=== PATIENT | female | born 1990 | race Caucasian/White ===

== ENCOUNTER 2016-09-30 17:05 | Emergency (ER) | payer OTHER ==
--- NOTE | 2016-09-30 19:05 | UC ---
Knee Pain HPI - HPI Summary HPI Summary: 26 y/o female presents to the urgent care c/o left knee pain since 09/16/2016 while she was playing softball, she twisted her left knee while running. Pt took tylenol to alleviate symptoms. But this past Tuesday09/28/2016 she played again and now her pain is worse, 8/10 even at rest. Pt has placed ice and taking tylenol. Pt denies fever, chest pain, SOB, N/V/D. Pt reports her LMP [id number] and her periods are regular and declines a test. - History of Current Complaint Chief Complaint: UCLowerExtremity Stated Complaint: LFT KNEE PAIN Time Seen by Provider: 09/30/16 18:49 Hx Obtained From: Patient Hx Last Menstrual Period: 09/11/16 ?: No Onset/Duration: Sudden Onset, Lasting Days, Still Present Severity Initially: Mild Severity Currently: Moderate Location Of Injury: Left knee Pain Intensity: 8 Pain Scale Used: 0-10 Numeric Character: Sharp Aggravating Factor(s): Movement, Weight Bearing, Prolonged Standing Alleviating Factor(s): Cold, OTC Meds Associated Signs And Symptoms: Positive: Swelling Able to Bear Weight: Yes - Risk Factors Septic Arthritis Risk Factor: Negative Gout Risk Factor: Negative - Allergies/Home Medications Allergies/Adverse Reactions: Allergies Allergy/AdvReac Type Severity Reaction Status Date / Time No Known Allergies Allergy Verified 09/30/16 18:07 Home Medications: Home Medications ALPRAZolam TAB* [Xanax TAB*] 0.5 mg PO BID PRN 09/30/16 [History Confirmed 09/30] buPROPion TAB* [Wellbutrin TAB*] 100 mg PO BID 09/30/16 [History Confirmed 09/30] PMH/Surg Hx/FS Hx/Imm Hx Previously Healthy: Yes Psychological History: Anxiety Other History Of: Negative For: Anticoagulant Therapy - Surgical History Surgical History: None Surgery Procedure, Year, and Place: tonselectomy 01/2012 - Family History Known Family History: Positive: Diabetes Family History: COPD - Social History Occupation: Employed Full-time Lives: With Family Alcohol Use: Weekly Substance Use Type: None Smoking Status (MU): Former Smoker When Did the Patient Quit Smoking/Using Tobacco: 2010 Review of Systems Constitutional: Negative Skin: Negative, Rash ENT: Negative Respiratory: Negative Cardiovascular: Negative Gastrointestinal: Negative Genitourinary: Negative Motor: Negative Neurovascular: Negative Musculoskeletal: Decreased ROM - LF knee pain Neurological: Negative Psychological: Negative All Other Systems Reviewed And Are Negative: Yes Physical Exam Triage Information Reviewed: Yes Appearance: Well-Appearing, No Pain Distress, Well-Nourished, Obese Vital Signs: Initial Vital Signs Temp 98.1 F 09/30/16 18:01 Pulse 86 09/30/16 18:01 Resp 18 09/30/16 18:01 BP 133/75 09/30/16 18:01 Pulse Ox 100 09/30/16 18:01 Vital Signs Reviewed: Yes Eye Exam: Normal - PERRLA, EOMI, fundi grossly normal Eyes: Positive: Conjunctiva Clear ENT Exam: Normal ENT: Positive: Normal ENT inspection, Hearing grossly normal, Pharynx normal, TMs normal Dental Exam: Normal Neck exam: Normal Neck: Positive: Supple, Nontender, No Lymphadenopathy Respiratory Exam: Normal Respiratory: Positive: Chest non-tender, Lungs clear, Normal breath sounds, No respiratory distress Cardiovascular Exam: Normal Cardiovascular: Positive: RRR, No Murmur, Pulses Normal Abdominal Exam: Normal Abdomen Description: Positive: Nontender, No Organomegaly, Soft. Negative: CVA Tenderness (R), CVA Tenderness (L) Bowel Sounds: Positive: Present Musculoskeletal Exam: Normal Musculoskeletal: Positive: Other: - LEFT knee: Mild swelling of the left knee w/ o erythema when compared with RT knee. Decrease ROM on flexion and extension due to pain. PT able to ambulate. Drawer test positive, and Valgus and Varus test positive. Positive capillary refill of lower extremity and positive pulses. Positive sensation. Neurological Exam: Normal Psychological Exam: Normal Skin Exam: Normal Knee Pain Course/Dx - Course Course Of Treatment: 26 y/o female presents to the urgent care c/o left knee pain since 09/16/2016 while she was playing softball, she twisted her knee while running. Hx obtained. PE abnormal finding: LEFT knee: Mild swelling of the left knee w/o erythema when compared with RT knee. Decrease ROM on flexion and extension due to pain. PT able to ambulate. Drawer test positive, and Valgus and Varus test positive. Positive capillary refill of lower extremity and positive pulses. Positive sensation. R/o Anterior cruciate ligament tear. Pt decline test for x-ray reports LMP 09/11/2016 with regular menstrual cycles. X-ray of left knee ordered. Result: negative. Pt given Ibuprofen 800mg PO at the urgent care to alleviate pain. Pt tolerated well medication and pain decrease to 09/11. I spoked with the Orthopedic Dr real estate acquisition analyst DR. Fazal Galaviz. Presented the case and he recommended placing PT on knee immobilzer and have Pt call the office next day to schedule an appt for next week, since pt is ambulating and injury happened a week ago. Pt Rx ibuprofen 800mg PO prn after meals and advised to keep inmmobilizer in place a f/u with Dr Ivey for further evaluation and treatment. After placing inmobilizer pt nerouvascular intact. Pt left the clinic ambulating. - Differential Dx/Diagnosis Differential Diagnosis/HQI/PQRI: Contusion, Dislocation, Fracture (Closed), Internal Derangement Of Knee, Patellofemoral Syndrome, Sprain, Strain, Tendonitis Provider Diagnoses: Left knee pain s/p injury - Physician Notifications Discussed Patient Care With: Fazal Ivey - Dr Ivey recomended to place Pt on aknee immobilizer and have the PT call Time Discussed With Above Provider: 00:05 Discharge - Discharge Plan Condition: Stable Disposition: HOME Prescriptions: Ibuprofen TAB* [Motrin TAB* 800 MG] 800 mg PO Q6H #30 tab Patient Education Materials: ACL Injury (ED) Referrals: Fazal Ivey MD [Medical Doctor] - As Soon As Possible Ramirez Cintron MD [Primary Care Provider] - Additional Instructions: Please take medications as instructed after meals to alleviate symptoms. Place ice and rest and keep knee immobilizer in place. Please call Dr Galaviz office tomorrow to schedule an appt for next week. If pain persist despite Ibuprofen please return to the urgent care for further evaluation and treatment.
--- NOTE | 2016-09-30 20:28 | RAD ---
Indication: LEFT knee pain following twisting injury 8 days ago. Anterolateral pain increases with ambulation. Comparison: No relevant prior exams available on the [facility] for comparison. Technique: LEFT knee: AP, tunnel, lateral, sunrise views. Report: Normal articular alignment and preserved joint spaces. Negative for effusion, fracture, or abnormal soft tissue contour. IMPRESSION: Negative exam.
[2016-09-30 20:34] VITALS: BP 139/82
[2016-09-30] MEDS ORDERED: Ibuprofen TAB* 400 MG PO ONE (20:37)
== END 2016-09-30 20:50 | disposition home or self-care (01) ==
LOC: UCCORT 17:05
DX: M25.562 Pain in left knee (principal); F41.9 Anxiety disorder, unspecified; Z87.891 Personal history of nicotine dependence
CPT/HCPCS: 99213; A9270-GY; G0463

== ENCOUNTER 2018-02-03 16:18 | Emergency (ER) | payer OTHER ==
[2018-02-03 18:38] VITALS: BP 130/86
--- NOTE | 2018-02-03 19:10 | ED ---
Respiratory - HPI Summary HPI Summary: 27 yo AF c/o cough wiht chest congestion x 1.5 weeks, denies f/c but URI sx now worse and it's in chest, w/o much productive sputum - History of Current Complaint Chief Complaint: UCRespiratory Stated Complaint: COUGH/CONGESTION Time Seen by Provider: 02/03/18 18:36 Hx Obtained From: Patient Initial Severity: Moderate Current Severity: Severe Pain Intensity: 0 Character: Cough (Nonproductive) Sputum Amount: Scant Aggravating Factor(s): URI Alleviating Factor(s): Nothing - Allergy/Home Medications Allergies/Adverse Reactions: Allergies Allergy/AdvReac Type Severity Reaction Status Date / Time No Known Allergies Allergy Verified 09/30/16 18:07 Home Medications: Home Medications Dicyclomine CAP* [Bentyl CAP*] 10 mg PO TID PRN 02/03/18 [History Confirmed 05/22] Levonorgestrel (Iud) [Mirena IUD] 20 mcg IU ONCE 02/03/18 [History Confirmed 05/22] Sucralfate TAB* [Carafate*] 1 gm PO TID 02/03/18 [History Confirmed 02/03/18] PMH/Surg Hx/FS Hx/Imm Hx Endocrine/Hematology History: Denies: Hx Anticoagulant Therapy, Hx Diabetes, Hx Thyroid Disease Cardiovascular History: Denies: Hx Hypertension, Hx Pacemaker/ICD Respiratory History: Denies: Hx Asthma, Hx Chronic Obstructive Pulmonary Disease (COPD) History: Reports: Hx Kidney Infection - STATES NOT RECENTLY Denies: Hx Renal Disease Sensory History: Reports: Hx Contacts or Glasses - INST GLASSES DAY OF OR Denies: Hx Hearing Aid Opthamlomology History: Reports: Hx Contacts or Glasses - INST GLASSES DAY OF OR Neurological History: Denies: Hx Dementia, Hx Seizures Psychiatric History: Denies: Hx Substance Abuse - Surgical History Surgery Procedure, Year, and Place: tonsillectomy 01/2012 Hx Anesthesia Reactions: No Infectious Disease History: No Infectious Disease History: Denies: Hx Hepatitis, Hx Human Immunodeficiency Virus (HIV), Traveled Outside the [place] in Last 30 Days - Family History Known Family History: Positive: Diabetes Family History: COPD - Social History Alcohol Use: Occasionally Substance Use Type: Reports: None Smoking Status (MU): Former Smoker Review of Systems Constitutional: Negative Eyes: Negative Positive: Nasal Discharge Cardiovascular: Negative Positive: Cough Gastrointestinal: Negative Genitourinary: Negative Musculoskeletal: Negative Skin: Negative Neurological: Negative All Other Systems Reviewed And Are Negative: Yes Physical Exam - Summary Physical Exam Summary: Vital Signs Reviewed: Yes Appearance: Positive: Well-Appearing Skin: Positive: Warm Head/Face: Positive: Normal Head/Face Inspection Eyes: Positive: Normal, EOMI, CHANELLE ENT: Positive: Normal ENT inspection Neck: Positive: Supple Respiratory/Lung Sounds: Positive: B/L rhonchi, Neg wheezes Cardiovascular: Positive: Normal, RRR, S1, S2 Abdomen Description: Positive: Nontender, Soft Musculoskeletal: Positive: Normal Neurological: Positive: CN Intact II-XII Psychiatric: Positive: Normal Vital Signs On Initial Exam: Initial Vitals Temp Pulse Resp BP Pulse Ox 36.3 C 87 14 130/86 100 02/03/18 18:35 02/03/18 18:35 02/03/18 18:35 02/03/18 18:35 02/03/18 18:35 Diagnostics - Vital Signs Vital Signs Temp Pulse Resp BP Pulse Ox 02/03/18 18:35 36.3 C 87 14 130/86 100 - Laboratory Lab Statement: Any lab studies that have been ordered have been reviewed, and results considered in the medical decision making process. Disposition - Diagnoses Provider Diagnoses: Bronchitis Discharge - Sign-Out/Discharge Documenting (check all that apply): Patient Departure All imaging exams completed and their final reports reviewed: No Studies - Discharge Plan Condition: Stable Disposition: HOME Prescriptions: Azithromycin TAB* [Zithromax TAB (Z-FRANKLIN) 250 mg #6 tabs] 2 tab PO .TODAY, THEN 1 DAILY #1 franklin Patient Education Materials: Acute Bronchitis (ED) Referrals: Ramirez Cintron MD [Primary Care Provider] - Additional Instructions: F/u if symtoms worsen - Billing Disposition and Condition Condition: STABLE Disposition: Home
== END 2018-02-03 19:11 | disposition home or self-care (01) ==
LOC: UCCORT 16:18
DX: J40 Bronchitis, not specified as acute or chronic (principal); Z87.891 Personal history of nicotine dependence
CPT/HCPCS: 99212; G0463